=== PATIENT | male | born 1935 | race Caucasian/White ===

== ENCOUNTER 2022-07-09 19:55 | Inpatient (IN) | payer MEDICARE, OTHER ==
[~2022-07-09 19:55] MED LIST: Iopamidol-370 76% 500 ML 1 ML ONE
[2022-07-09] MEDS ORDERED: Aspirin 325 MG TAB ONE (20:47)
[2022-07-09 20:50] LABS: #Lymphocytes 1.3 thou/uL (1.20-3.40); #Monocytes 0.5 thou/uL (0.11-0.59); #Neutrophils 4.7 thou/uL (1.40-6.50); %Basophils 0.4 % (0.0-1.0); %Eosinophils 0.1 % (0.0-10.0); %Lymphocytes 20.1 % (21.0-51.0); %Monocytes 7.2 % (0.0-10.0); %Neutrophils 72.1 % (42.0-75.0); Mean Corpuscular HGB CONC 33.6 g/dL (32.0-36.0); Mean Corpuscular Hemoglobin 34.5 pg (27.0-31.0); Mean Platelet Volume 7.6 fL (7.4-10.4); Platelet Count 204 10x3/uL (130-400); RBC Distribution Width 12.3 % (11.5-14.5); Red Blood Cell (RBC) Count 2.89 mill/uL (4.70-6.10); White Blood Cell (WBC) Count 6.5 10x3/uL (4.8-10.8)
[2022-07-09 21:09] LABS: ALT (SGPT) 32 U/L (8-55); AST (SGOT) 38 U/L (5-34); Albumin 3.4 g/dL (3.4-4.8); Alkaline Phosphatase 109 U/L (40-110); Anion Gap 16 mmol/L (10-20); BUN (Urea Nitrogen) 22 mg/dL (8.4-25.7); Bilirubin, Total 0.7 mg/dL (0.2-1.2); Calc. Creatinine Clearance 0 mL/min (70-130); Calcium 8.9 mg/dL (7.8-10.44); Carbon Dioxide 26 mmol/L (23-31); Chloride 104 mmol/L (98-107); Estimated GFR 58; Globulin 4.3 g/dL (2.4-3.5); Glucose 117 mg/dL (83-110); Potassium 4.2 mmol/L (3.5-5.1); Protein, Total 7.7 g/dL (5.8-8.1); Sodium 142 mmol/L (136-145)
[2022-07-09 21:31] LABS: CKMB 3.2 ng/mL (0-6.6)
[2022-07-09] MEDS ORDERED: Furosemide 20 MG/2 ML VIAL SLOW IVP SCH (23:45)
[2022-07-09] MEDS ORDERED: Acetaminophen 325 MG TAB PO PRN (23:48)
[2022-07-09] MEDS ORDERED: Ondansetron PF 4 MG/2 ML Vial IVP PRN (23:48)
[2022-07-10] LABS: Troponin I 0.028 ng/mL (< 0.028)
[2022-07-10] MEDS ORDERED: Furosemide 20 MG/2 ML VIAL ONE ×3 (00:43→13:50)
[2022-07-10 02:59] LABS: Troponin I 0.027 ng/mL (< 0.028)
[2022-07-10] MEDS: Furosemide 20 MG/2 ML VIAL SLOW IVP SCH ×2 (05:59→14:02)
[2022-07-10 07:23] LABS: #Lymphocytes 1.7 thou/uL (1.20-3.40); #Monocytes 0.6 thou/uL (0.11-0.59); #Neutrophils 6.1 thou/uL (1.40-6.50); %Basophils 0.2 % (0.0-1.0); %Eosinophils 0.2 % (0.0-10.0); %Monocytes 6.6 % (0.0-10.0); Mean Corpuscular HGB CONC 33.2 g/dL (32.0-36.0); Mean Corpuscular Hemoglobin 34.1 pg (27.0-31.0); Mean Platelet Volume 7.7 fL (7.4-10.4); Platelet Count 214 10x3/uL (130-400); RBC Distribution Width 12.4 % (11.5-14.5); Red Blood Cell (RBC) Count 3.21 mill/uL (4.70-6.10); White Blood Cell (WBC) Count 8.3 10x3/uL (4.8-10.8)
[2022-07-10 07:41] LABS: Anion Gap 13 mmol/L (10-20); BUN (Urea Nitrogen) 20 mg/dL (8.4-25.7); Calc. Creatinine Clearance 0 mL/min (70-130); Calcium 9.1 mg/dL (7.8-10.44); Carbon Dioxide 27 mmol/L (23-31); Chloride 100 mmol/L (98-107); Estimated GFR 60; Glucose 86 mg/dL (83-110); Magnesium 2.1 mg/dL (1.6-2.6); Sodium 136 mmol/L (136-145)
[2022-07-10] MEDS ORDERED: Metoclopramide HCl 10 MG/2 ML VIAL IVP PRN (08:20)
[2022-07-10] MEDS ORDERED: Ipratropium/Albuterol 3 ML NEB NEB PRN (09:23)
[2022-07-10] MEDS ORDERED: guaiFENesin 200 MG TAB PO PRN (09:23)
[2022-07-10] MEDS ORDERED: Iopamidol 370 76% 100 ML VIAL ONE (10:34)
[2022-07-10 18:34] VITALS: BMI 20.8
[2022-07-11 05:47] LABS: #Lymphocytes 1.2 thou/uL (1.20-3.40); #Monocytes 0.6 thou/uL (0.11-0.59); #Neutrophils 5.1 thou/uL (1.40-6.50); %Basophils 0.3 % (0.0-1.0); %Eosinophils 0.2 % (0.0-10.0); %Lymphocytes 17.5 % (21.0-51.0); %Monocytes 8.1 % (0.0-10.0); %Neutrophils 73.9 % (42.0-75.0); Hemoglobin 10.2 g/dL (14.0-18.0); Mean Corpuscular HGB CONC 33.2 g/dL (32.0-36.0); Mean Corpuscular Hemoglobin 34.2 pg (27.0-31.0); Mean Platelet Volume 7.8 fL (7.4-10.4); Platelet Count 210 10x3/uL (130-400); RBC Distribution Width 12.1 % (11.5-14.5); Red Blood Cell (RBC) Count 2.97 mill/uL (4.70-6.10)
[2022-07-11 06:12] LABS: Anion Gap 12 mmol/L (10-20); BUN (Urea Nitrogen) 25 mg/dL (8.4-25.7); Calc. Creatinine Clearance 31 mL/min (70-130); Calcium 8.7 mg/dL (7.8-10.44); Carbon Dioxide 27 mmol/L (23-31); Chloride 101 mmol/L (98-107); Estimated GFR 51; Glucose 99 mg/dL (83-110); Potassium 4.1 mmol/L (3.5-5.1); Sodium 136 mmol/L (136-145)
[2022-07-11] MEDS: Furosemide 20 MG/2 ML VIAL SLOW IVP SCH ×2 (07:16→15:11)
[2022-07-11] MEDS ORDERED: Thyroid 30 MG TAB PO SCH (09:00)
[2022-07-11 12:55] VITALS: BP 118/64; TEMP 98.1
== END 2022-07-11 15:28 | disposition home or self-care (01) | DRG 291 ==
LOC: ERS 19:55 → ERHOLD 22:36 → OBSVTOIN 23:50 → 2SW 07-10 18:27
PROVIDERS: ADMIT Internal Medicine; ATTEND Nurse Practitioner Acute Care
DX: I50.23 Acute on chronic systolic (congestive) heart failure (principal); J18.9 Pneumonia, unspecified organism; I45.2 Bifascicular block; I48.92 Unspecified atrial flutter; R91.8 Other nonspecific abnormal finding of lung field; R77.8 Other specified abnormalities of plasma proteins; Z66 Do not resuscitate; E03.9 Hypothyroidism, unspecified; D64.9 Anemia, unspecified; Z96.643 Presence of artificial hip joint, bilateral; J84.10 Pulmonary fibrosis, unspecified; I08.1 Rheumatic disorders of both mitral and tricuspid valves; R09.02 Hypoxemia; Z79.890 Hormone replacement therapy; Z90.89 Acquired absence of other organs; Z90.49 Acquired absence of other specified parts of digestive tract; Z98.42 Cataract extraction status, left eye; Z98.41 Cataract extraction status, right eye; Z20.822 Contact with and (suspected) exposure to COVID-19
CPT/HCPCS: 36415; 71045; 71275; 74177; 80048; 80053; 82553; 83735; 83880; 84443; 84484; 85025; 85379; 87804; 93005; 93010; 93306; 94760; J1940; Q9967; U0003; U0005

== ENCOUNTER 2022-07-22 08:38 | Day surgery (SDC) | payer MEDICARE, OTHER ==
[2022-07-21 13:06] VITALS: BMI 20.6
[2022-07-22 08:41] LABS: #Basophils 0.1 thou/uL (0.0-0.2); #Lymphocytes 2.2 thou/uL (1.20-3.40); #Monocytes 0.6 thou/uL (0.11-0.59); #Neutrophils 4.4 thou/uL (1.40-6.50); %Basophils 0.9 % (0.0-1.0); %Eosinophils 0.1 % (0.0-10.0); %Lymphocytes 29.6 % (21.0-51.0); %Monocytes 8.3 % (0.0-10.0); Hemoglobin 10.5 g/dL (14.0-18.0); Mean Corpuscular HGB CONC 32.6 g/dL (32.0-36.0); Mean Platelet Volume 7.5 fL (7.4-10.4); Platelet Count 213 10x3/uL (130-400); RBC Distribution Width 12.9 % (11.5-14.5); White Blood Cell (WBC) Count 7.3 10x3/uL (4.8-10.8)
[2022-07-22 08:57] LABS: INR-International Normal Ratio 1.2; PTT 30.9 sec (22.9-36.1); Prothrombin Time 15.5 sec (12.0-14.7)
[2022-07-22 10:02] VITALS: BP 164/78; TEMP 97.7
== END 2022-07-22 12:30 | disposition home or self-care (01) ==
LOC: CT 08:38
PROVIDERS: ATTEND Internal Medicine Critical Care Medicine
PROC: 0BBF3ZX Excision of Right Lower Lung Lobe, Percutaneous Approach, Diagnostic (ICD-10-PCS; principal; 2022-07-22)
DX: C34.31 Malignant neoplasm of lower lobe, right bronchus or lung (principal); D64.9 Anemia, unspecified; I48.92 Unspecified atrial flutter; E03.9 Hypothyroidism, unspecified; Z79.890 Hormone replacement therapy
CPT/HCPCS: 32408; 71045; 77002; 85025; 85610; 85730; 88305; 88341; 88342; 88360

== ENCOUNTER 2022-08-13 11:00 | Outpatient (CLI) | payer MEDICARE, OTHER | END 2022-08-13 11:01 | disposition home or self-care (01) | LOC: PET 11:00 | PROVIDERS: ATTEND Internal Medicine Hematology & Oncology | DX: C43.39 Malignant melanoma of other parts of face (principal); C78.01 Secondary malignant neoplasm of right lung | CPT/HCPCS: 78816; A9552 ==

== ENCOUNTER 2022-10-15 11:00 | Outpatient (CLI) | payer MEDICARE, OTHER | END 2022-10-15 11:01 | disposition home or self-care (01) | LOC: PET 11:00 | PROVIDERS: ATTEND Internal Medicine Hematology & Oncology | DX: C43.39 Malignant melanoma of other parts of face (principal); C78.01 Secondary malignant neoplasm of right lung | CPT/HCPCS: 78816; A9552 ==

== ENCOUNTER 2022-10-19 09:59 | Outpatient (CLI) | payer MEDICARE, OTHER ==
[2022-10-19] MEDS ORDERED: Magnevist 469MG/ML 20 ML VIAL ONE (10:14)
== END 2022-10-19 10:00 | disposition home or self-care (01) ==
LOC: MRI 09:59
PROVIDERS: ATTEND Radiology Radiation Oncology
DX: C79.31 Secondary malignant neoplasm of brain (principal)
CPT/HCPCS: 70553; A9579

== ENCOUNTER 2022-11-11 12:01 | Inpatient (IN) | payer MEDICARE, OTHER ==
[2022-11-11 13:11] LABS: #Lymphocytes 1.2 thou/uL (1.20-3.40); #Monocytes 0.5 thou/uL (0.11-0.59); #Neutrophils 8.9 thou/uL (1.40-6.50); %Basophils 0.2 % (0.0-1.0); %Eosinophils 0.1 % (0.0-10.0); %Lymphocytes 10.9 % (21.0-51.0); %Monocytes 4.6 % (0.0-10.0); %Neutrophils 84.2 % (42.0-75.0); Hemoglobin 12.6 g/dL (14.0-18.0); Mean Corpuscular HGB CONC 33.9 g/dL (32.0-36.0); Mean Corpuscular Hemoglobin 34.6 pg (27.0-31.0); Platelet Count 144 10x3/uL (130-400); Red Blood Cell (RBC) Count 3.65 mill/uL (4.70-6.10); White Blood Cell (WBC) Count 10.6 10x3/uL (4.8-10.8)
[2022-11-11 13:32] LABS: ALT (SGPT) 23 U/L (8-55); AST (SGOT) 25 U/L (5-34); Albumin 3.9 g/dL (3.4-4.8); Alkaline Phosphatase 95 U/L (40-110); Anion Gap 13 mmol/L (10-20); BUN (Urea Nitrogen) 39 mg/dL (8.4-25.7); Bilirubin, Total 0.8 mg/dL (0.2-1.2); Calc. Creatinine Clearance 0 mL/min (70-130); Calcium 9.3 mg/dL (7.8-10.44); Carbon Dioxide 28 mmol/L (23-31); Chloride 104 mmol/L (98-107); Estimated GFR 49; Glucose 100 mg/dL (83-110); Magnesium 2.1 mg/dL (1.6-2.6); Potassium 4.6 mmol/L (3.5-5.1); Protein, Total 7.9 g/dL (5.8-8.1); Sodium 140 mmol/L (136-145)
[2022-11-11] MEDS ORDERED: Dexamethasone 10 MG/ML VIAL ONE (14:25)
[2022-11-11] MEDS ORDERED: Lorazepam 2 MG/ML VIAL SLOW IVP PRN (14:52)
[2022-11-11] MEDS ORDERED: Ondansetron ODT 4 MG TAB PO PRN (14:55)
[2022-11-11] MEDS ORDERED: Acetaminophen 325 MG TAB PO PRN (14:55)
[2022-11-11] MEDS ORDERED: Ondansetron PF 4 MG/2 ML Vial IVP PRN (14:55)
[2022-11-11] MEDS ORDERED: Senokot S 8.6-50 MG TAB PO PRN (14:55)
[2022-11-11] MEDS ORDERED: Calcium Carbonate 500 MG ChewTAB PO PRN (14:55)
[2022-11-11] MEDS ORDERED: Electrolyte Replacement Protocol 1 EACH FS SCH (15:00)
[2022-11-11] MEDS ORDERED: Sodium Chloride 0.9% 1,000 ML IV SCH ×2 (15:00→17:00)
[2022-11-11] MEDS ORDERED: levETIRAcetam 500 MG/5 ML VIAL ONE (15:18)
[2022-11-11] MEDS ORDERED: hydrALAZINE 25 MG TAB PO PRN (16:02)
[2022-11-11 17:03] LABS: #Lymphocytes 0.6 thou/uL (1.20-3.40); #Monocytes 0.1 thou/uL (0.11-0.59); #Neutrophils 8.8 thou/uL (1.40-6.50); %Eosinophils 0.2 % (0.0-10.0); %Lymphocytes 5.9 % (21.0-51.0); %Monocytes 0.7 % (0.0-10.0); %Neutrophils 93.2 % (42.0-75.0); Hemoglobin 12.2 g/dL (14.0-18.0); Mean Corpuscular HGB CONC 33.6 g/dL (32.0-36.0); Mean Corpuscular Hemoglobin 34.6 pg (27.0-31.0); Mean Platelet Volume 7.7 fL (7.4-10.4); Platelet Count 123 10x3/uL (130-400); Red Blood Cell (RBC) Count 3.54 mill/uL (4.70-6.10); White Blood Cell (WBC) Count 9.5 10x3/uL (4.8-10.8)
[2022-11-11 17:24] VITALS: BMI 23.4
[2022-11-11 17:24] LABS: ALT (SGPT) 53 U/L (8-55); AST (SGOT) 55 U/L (5-34); Albumin 3.7 g/dL (3.4-4.8); Alkaline Phosphatase 90 U/L (40-110); Anion Gap 14 mmol/L (10-20); BUN (Urea Nitrogen) 36 mg/dL (8.4-25.7); Bilirubin, Total 0.8 mg/dL (0.2-1.2); Calc. Creatinine Clearance 0 mL/min (70-130); Calcium 8.8 mg/dL (7.8-10.44); Carbon Dioxide 26 mmol/L (23-31); Chloride 103 mmol/L (98-107); Estimated GFR 58; Globulin 3.7 g/dL (2.4-3.5); Glucose 117 mg/dL (83-110); Magnesium 1.9 mg/dL (1.6-2.6); Protein, Total 7.4 g/dL (5.8-8.1); Sodium 138 mmol/L (136-145)
[2022-11-11] MEDS: Dexamethasone 4 mg/ml Vial SLOW IVP SCH (17:47)
[2022-11-11] MEDS ORDERED: Atropine Sulfate 1 mg/10 ml Syringe IVP PRN (18:36)
[2022-11-11] MEDS ORDERED: Magnesium 2 GM/50 ML(in water) 2 GM in Premix Bag 1 BAG IVPB SCH (21:00)
[2022-11-11] MEDS: Cyanocobalamin (Vitamin B-12) 1,000 MCG TAB PO SCH (21:02)
[2022-11-11] MEDS: Folic Acid 1 MG TAB PO SCH (21:02)
[2022-11-11] MEDS: Multivit, Therapeutic 1 TAB PO SCH (21:02)
[2022-11-11] MEDS: levETIRAcetam 500 MG/5 ML VIAL SLOW IVP SCH (21:02)
[2022-11-12] MEDS: Dexamethasone 4 mg/ml Vial SLOW IVP SCH ×4 (00:37→17:06)
[2022-11-12 05:48] LABS: Anion Gap 13 mmol/L (10-20); BUN (Urea Nitrogen) 39 mg/dL (8.4-25.7); Calc. Creatinine Clearance 36 mL/min (70-130); Calcium 8.5 mg/dL (7.8-10.44); Carbon Dioxide 23 mmol/L (23-31); Chloride 105 mmol/L (98-107); Estimated GFR 62; Glucose 157 mg/dL (83-110); Magnesium 2.6 mg/dL (1.6-2.6); Potassium 5.4 mmol/L (3.5-5.1); Sodium 136 mmol/L (136-145)
[2022-11-12] MEDS: levETIRAcetam 500 MG/5 ML VIAL SLOW IVP SCH ×2 (09:18→21:25)
[2022-11-12] MEDS ORDERED: DOPamine 400 MG/D5W 250 ML 250 ML IVPB SCH (10:30)
[2022-11-12] MEDS: Cyanocobalamin (Vitamin B-12) 1,000 MCG TAB PO SCH (21:25)
[2022-11-12] MEDS: Folic Acid 1 MG TAB PO SCH (21:25)
[2022-11-12] MEDS: Multivit, Therapeutic 1 TAB PO SCH (21:25)
[2022-11-13] MEDS: Dexamethasone 4 mg/ml Vial SLOW IVP SCH ×5 (00:16→23:30)
[2022-11-13] MEDS: levETIRAcetam 500 MG/5 ML VIAL SLOW IVP SCH ×2 (09:24→20:15)
[2022-11-13] MEDS ORDERED: Cephalexin 250 MG CAP PO SCH (18:00)
[2022-11-13] MEDS: Cyanocobalamin (Vitamin B-12) 1,000 MCG TAB PO SCH (20:15)
[2022-11-13] MEDS: Folic Acid 1 MG TAB PO SCH (20:15)
[2022-11-13] MEDS: Multivit, Therapeutic 1 TAB PO SCH (20:15)
[2022-11-14 05:06] LABS: #Basophils 0.1 thou/uL (0.0-0.2); #Lymphocytes 0.5 thou/uL (1.20-3.40); #Monocytes 0.4 thou/uL (0.11-0.59); %Basophils 0.4 % (0.0-1.0); %Lymphocytes 4.1 % (21.0-51.0); %Neutrophils 92.4 % (42.0-75.0); Hemoglobin 11.4 g/dL (14.0-18.0); Mean Corpuscular HGB CONC 32.9 g/dL (32.0-36.0); Mean Corpuscular Hemoglobin 34.1 pg (27.0-31.0); Mean Platelet Volume 8.5 fL (7.4-10.4); Platelet Count 106 10x3/uL (130-400); Red Blood Cell (RBC) Count 3.36 mill/uL (4.70-6.10); White Blood Cell (WBC) Count 11.9 10x3/uL (4.8-10.8)
[2022-11-14 05:23] LABS: Anion Gap 13 mmol/L (10-20); BUN (Urea Nitrogen) 47 mg/dL (8.4-25.7); Calc. Creatinine Clearance 36 mL/min (70-130); Calcium 8.7 mg/dL (7.8-10.44); Carbon Dioxide 20 mmol/L (23-31); Chloride 108 mmol/L (98-107); Estimated GFR 61; Glucose 122 mg/dL (83-110); Potassium 5.5 mmol/L (3.5-5.1); Sodium 135 mmol/L (136-145)
[2022-11-14] MEDS: Dexamethasone 4 mg/ml Vial SLOW IVP SCH ×4 (05:26→23:43)
[2022-11-14] MEDS: levETIRAcetam 500 MG/5 ML VIAL SLOW IVP SCH (08:33)
[2022-11-14] MEDS: Folic Acid 1 MG TAB PO SCH (20:15)
[2022-11-14] MEDS: Multivit, Therapeutic 1 TAB PO SCH (20:16)
[2022-11-14] MEDS: Cyanocobalamin (Vitamin B-12) 1,000 MCG TAB PO SCH (20:16)
[2022-11-14] MEDS: levETIRAcetam 500 MG TAB PO SCH (20:16)
[2022-11-15 05:23] LABS: #Lymphocytes 0.5 thou/uL (1.20-3.40); #Monocytes 0.4 thou/uL (0.11-0.59); #Neutrophils 9.3 thou/uL (1.40-6.50); %Eosinophils 0.1 % (0.0-10.0); %Monocytes 3.7 % (0.0-10.0); %Neutrophils 91.3 % (42.0-75.0); Hemoglobin 10.6 g/dL (14.0-18.0); Mean Corpuscular HGB CONC 32.9 g/dL (32.0-36.0); Mean Corpuscular Hemoglobin 33.7 pg (27.0-31.0); Mean Platelet Volume 8.9 fL (7.4-10.4); Platelet Count 105 10x3/uL (130-400); RBC Distribution Width 12.9 % (11.5-14.5); Red Blood Cell (RBC) Count 3.15 mill/uL (4.70-6.10); White Blood Cell (WBC) Count 10.2 10x3/uL (4.8-10.8)
[2022-11-15 05:35] LABS: Anion Gap 12 mmol/L (10-20); BUN (Urea Nitrogen) 56 mg/dL (8.4-25.7); Calc. Creatinine Clearance 37 mL/min (70-130); Calcium 8.4 mg/dL (7.8-10.44); Carbon Dioxide 23 mmol/L (23-31); Chloride 106 mmol/L (98-107); Estimated GFR 63; Glucose 146 mg/dL (83-110); Potassium 4.2 mmol/L (3.5-5.1); Sodium 137 mmol/L (136-145)
[2022-11-15] MEDS: Dexamethasone 4 mg/ml Vial SLOW IVP SCH ×3 (05:42→20:35)
[2022-11-15] MEDS: levETIRAcetam 500 MG TAB PO SCH ×2 (09:04→20:35)
[2022-11-15] MEDS ORDERED: Lactated Ringer's 1,000 ML IV SCH (11:15)
[2022-11-15] MEDS: Folic Acid 1 MG TAB PO SCH (20:35)
[2022-11-15] MEDS: Cyanocobalamin (Vitamin B-12) 1,000 MCG TAB PO SCH (20:35)
[2022-11-15] MEDS: Multivit, Therapeutic 1 TAB PO SCH (20:35)
[2022-11-16] MEDS: Dexamethasone 4 mg/ml Vial SLOW IVP SCH ×5 (02:34→21:30)
[2022-11-16 05:16] LABS: #Lymphocytes 0.4 thou/uL (1.20-3.40); #Monocytes 0.3 thou/uL (0.11-0.59); #Neutrophils 9.6 thou/uL (1.40-6.50); %Basophils 0.3 % (0.0-1.0); %Eosinophils 0.1 % (0.0-10.0); %Lymphocytes 4.3 % (21.0-51.0); %Monocytes 3.2 % (0.0-10.0); %Neutrophils 92.1 % (42.0-75.0); Hemoglobin 10.9 g/dL (14.0-18.0); Mean Corpuscular HGB CONC 32.2 g/dL (32.0-36.0); Platelet Count 102 10x3/uL (130-400); RBC Distribution Width 12.7 % (11.5-14.5); White Blood Cell (WBC) Count 10.4 10x3/uL (4.8-10.8)
[2022-11-16 05:27] LABS: Anion Gap 12 mmol/L (10-20); BUN (Urea Nitrogen) 52 mg/dL (8.4-25.7); Calc. Creatinine Clearance 34 mL/min (70-130); Calcium 8.4 mg/dL (7.8-10.44); Carbon Dioxide 26 mmol/L (23-31); Chloride 104 mmol/L (98-107); Estimated GFR 57; Glucose 135 mg/dL (83-110); Potassium 4.8 mmol/L (3.5-5.1); Sodium 137 mmol/L (136-145)
[2022-11-16] MEDS: levETIRAcetam 500 MG TAB PO SCH ×2 (09:04→21:29)
[2022-11-16] MEDS ORDERED: Iopamidol 370 76% 100 ML VIAL ONE (09:39)
[2022-11-16] MEDS ORDERED: Heparin 10,000 UNITS/ 10 ML VIAL ONE (09:48)
[2022-11-16] MEDS ORDERED: Lidocaine 1% (PF) 30 ML VIAL ONE (09:48)
[2022-11-16] MEDS ORDERED: Lidocaine 1% PF 5 ML VIAL ONE (12:22)
[2022-11-16] MEDS ORDERED: PROPOFOL 200 MG/20 ML VIAL ONE (12:22)
[2022-11-16] MEDS ORDERED: fentaNYL 50 mcg/mL 1 mL Vial ONE (12:40)
[2022-11-16] MEDS ORDERED: Acetaminophen/Codeine 30-300mg Tablet PO PRN ×2 (14:30)
[2022-11-16] MEDS: Folic Acid 1 MG TAB PO SCH (21:29)
[2022-11-16] MEDS: Multivit, Therapeutic 1 TAB PO SCH (21:29)
[2022-11-16] MEDS: Cyanocobalamin (Vitamin B-12) 1,000 MCG TAB PO SCH (21:30)
[2022-11-17] MEDS: Dexamethasone 4 mg/ml Vial SLOW IVP SCH ×2 (02:47→09:06)
[2022-11-17 05:21] LABS: #Monocytes 0.4 thou/uL (0.11-0.59); #Neutrophils 10.5 thou/uL (1.40-6.50); %Basophils 0.1 % (0.0-1.0); %Monocytes 3.5 % (0.0-10.0); %Neutrophils 91.3 % (42.0-75.0); Hemoglobin 10.9 g/dL (14.0-18.0); Mean Corpuscular HGB CONC 33.4 g/dL (32.0-36.0); Mean Corpuscular Volume 98.8 fl (78.0-98.0); Mean Platelet Volume 11.2 fL (7.4-10.4); Platelet Count 108 10x3/uL (130-400); White Blood Cell (WBC) Count 11.5 10x3/uL (4.8-10.8)
[2022-11-17 05:30] LABS: Anion Gap 9 mmol/L (10-20); BUN (Urea Nitrogen) 43 mg/dL (8.4-25.7); Calc. Creatinine Clearance 43 mL/min (70-130); Calcium 8.1 mg/dL (7.8-10.44); Carbon Dioxide 26 mmol/L (23-31); Chloride 107 mmol/L (98-107); Estimated GFR 77; Glucose 118 mg/dL (83-110); Potassium 4.7 mmol/L (3.5-5.1); Sodium 137 mmol/L (136-145)
[2022-11-17] MEDS: levETIRAcetam 500 MG TAB PO SCH (09:06)
[2022-11-17 11:49] VITALS: BP 130/69; TEMP 97.7
== END 2022-11-17 13:50 | disposition home or self-care (01) | DRG 981 ==
LOC: ERS 12:01 → NEURO 16:14 → CCU 11-12 08:57 → OBSVTOIN 11-12 09:50 → NEURO 11-12 20:20
PROVIDERS: ADMIT Internal Medicine; ATTEND Hospitalist
PROC: 0JH604Z Insertion of Pacemaker, Single Chamber into Chest Subcutaneous Tissue and Fascia, Open Approach (ICD-10-PCS; principal; 2022-11-16)
PROC: 02HK0JZ Insertion of Pacemaker Lead into Right Ventricle, Open Approach (ICD-10-PCS; 2022-11-16)
DX: G40.919 Epilepsy, unspecified, intractable, without status epilepticus (principal); G93.6 Cerebral edema; C79.31 Secondary malignant neoplasm of brain; I48.92 Unspecified atrial flutter; N17.9 Acute kidney failure, unspecified; Z66 Do not resuscitate; E03.9 Hypothyroidism, unspecified; R00.1 Bradycardia, unspecified; Z51.5 Encounter for palliative care; Z79.899 Other long term (current) drug therapy
CPT/HCPCS: 33274; 36415; 70450; 71045; 72125; 80048; 80053; 83735; 85025; 93005; 93010; 93306; 95816; 95819; 95957; 96365; 96375; 96376; C1760; C1769; C1894; G0378; J0461; J1100; J1644; J1953; J2001; J2704; J3010; J3475; J7050; J7120; Q9967

== ENCOUNTER 2022-11-26 13:39 | Inpatient (IN) | payer MEDICARE, OTHER ==
[2022-11-26 14:45] LABS: #Monocytes 0.3 thou/uL (0.11-0.59); #Neutrophils 16.7 thou/uL (1.40-6.50); %Basophils 0.2 % (0.0-1.0); %Lymphocytes 1.8 % (21.0-51.0); %Monocytes 1.6 % (0.0-10.0); %Neutrophils 94.7 % (42.0-75.0); Hemoglobin 12.7 g/dL (14.0-18.0); Mean Corpuscular HGB CONC 33.2 g/dL (32.0-36.0); Mean Corpuscular Hemoglobin 32.3 pg (27.0-31.0); Mean Corpuscular Volume 97.2 fl (78.0-98.0); Mean Platelet Volume 10.7 fL (7.4-10.4); Platelet Count 133 10x3/uL (130-400); RBC Distribution Width 14.5 % (11.5-14.5); Red Blood Cell (RBC) Count 3.93 mill/uL (4.70-6.10); White Blood Cell (WBC) Count 17.7 10x3/uL (4.8-10.8)
[2022-11-26 15:26] LABS: ALT (SGPT) 51 U/L (8-55); AST (SGOT) 26 U/L (5-34); Albumin 3.8 g/dL (3.4-4.8); Alkaline Phosphatase 121 U/L (40-110); Anion Gap 19 mmol/L (10-20); BUN (Urea Nitrogen) 53 mg/dL (8.4-25.7); Bilirubin, Total 0.6 mg/dL (0.2-1.2); Calc. Creatinine Clearance 0 mL/min (70-130); Calcium 8.7 mg/dL (7.8-10.44); Carbon Dioxide 23 mmol/L (23-31); Chloride 104 mmol/L (98-107); Estimated GFR 50; Globulin 3.3 g/dL (2.4-3.5); Glucose 174 mg/dL (83-110); Potassium 4.7 mmol/L (3.5-5.1); Protein, Total 7.1 g/dL (5.8-8.1); Sodium 141 mmol/L (136-145)
[2022-11-26 15:52] LABS: CKMB 6.5 ng/mL (0-6.6)
[2022-11-26] MEDS ORDERED: Furosemide 20 MG/2 ML VIAL ONE (16:54)
[2022-11-26] MEDS ORDERED: Aspirin Chewable 81 MG TAB ONE (16:54)
[2022-11-26 19:01] LABS: Troponin I 0.104 ng/mL (< 0.028)
[2022-11-26] MEDS ORDERED: Ondansetron ODT 4 MG TAB SL PRN (20:45)
[2022-11-26] MEDS ORDERED: Ondansetron PF 4 MG/2 ML Vial IVP PRN (20:45)
[2022-11-26] MEDS ORDERED: Acetaminophen 325 MG TAB PO PRN (20:45)
[2022-11-26 21:58] LABS: Troponin I 0.108 ng/mL (< 0.028)
[2022-11-26 22:11] VITALS: BMI 22.6
[2022-11-26] MEDS ORDERED: Dexamethasone 4 MG TAB ONE (22:13)
[2022-11-26] MEDS: Dexamethasone 4 MG TAB PO SCH (22:38)
[2022-11-26] MEDS: levETIRAcetam 500 MG TAB PO SCH (22:38)
[2022-11-27 01:12] LABS: Troponin I 0.118 ng/mL (< 0.028)
[2022-11-27] MEDS ORDERED: Furosemide 40 MG/4 ML VIAL ONE (04:20)
[2022-11-27 05:59] LABS: #Monocytes 0.3 thou/uL (0.11-0.59); #Neutrophils 13.5 thou/uL (1.40-6.50); %Basophils 0.1 % (0.0-1.0); %Lymphocytes 2.8 % (21.0-51.0); %Monocytes 2.2 % (0.0-10.0); %Neutrophils 93.2 % (42.0-75.0); Hemoglobin 11.5 g/dL (14.0-18.0); Mean Corpuscular Hemoglobin 31.7 pg (27.0-31.0); Mean Corpuscular Volume 98.9 fl (78.0-98.0); Mean Platelet Volume 10.2 fL (7.4-10.4); RBC Distribution Width 14.7 % (11.5-14.5); Red Blood Cell (RBC) Count 3.63 mill/uL (4.70-6.10); White Blood Cell (WBC) Count 14.5 10x3/uL (4.8-10.8)
[2022-11-27] MEDS ORDERED: Furosemide 40 MG/4 ML VIAL SLOW IVP SCH (06:00)
[2022-11-27 06:10] LABS: Platelet Count 105 10x3/uL (130-400)
[2022-11-27 06:45] LABS: Anion Gap 16 mmol/L (10-20); BUN (Urea Nitrogen) 45 mg/dL (8.4-25.7); Calc. Creatinine Clearance 35 mL/min (70-130); Calcium 8.4 mg/dL (7.8-10.44); Carbon Dioxide 28 mmol/L (23-31); Chloride 100 mmol/L (98-107); Estimated GFR 60; Glucose 113 mg/dL (83-110); Potassium 4.6 mmol/L (3.5-5.1); Sodium 139 mmol/L (136-145)
[2022-11-27] MEDS: Thyroid 30 MG TAB PO SCH (06:51)
[2022-11-27] MEDS ORDERED: Aspirin 325 MG TAB PO SCH (08:00)
[2022-11-27] MEDS ORDERED: Aspirin 325 MG TAB ONE (08:02)
[2022-11-27] MEDS: Dexamethasone 4 MG TAB PO SCH ×2 (08:09→20:15)
[2022-11-27] MEDS: levETIRAcetam 500 MG TAB PO SCH ×2 (08:10→20:15)
[2022-11-28 04:55] LABS: #Monocytes 0.4 thou/uL (0.11-0.59); #Neutrophils 14.2 thou/uL (1.40-6.50); %Basophils 0.1 % (0.0-1.0); %Lymphocytes 2.9 % (21.0-51.0); %Monocytes 2.4 % (0.0-10.0); %Neutrophils 93.1 % (42.0-75.0); Hemoglobin 11.7 g/dL (14.0-18.0); Mean Corpuscular Hemoglobin 32.3 pg (27.0-31.0); Mean Corpuscular Volume 98.1 fl (78.0-98.0); Mean Platelet Volume 10.9 fL (7.4-10.4); Platelet Count 123 10x3/uL (130-400); RBC Distribution Width 14.4 % (11.5-14.5); Red Blood Cell (RBC) Count 3.62 mill/uL (4.70-6.10); White Blood Cell (WBC) Count 15.3 10x3/uL (4.8-10.8)
[2022-11-28 05:18] LABS: Anion Gap 15 mmol/L (10-20); BUN (Urea Nitrogen) 48 mg/dL (8.4-25.7); Calc. Creatinine Clearance 38 mL/min (70-130); Calcium 8.5 mg/dL (7.8-10.44); Carbon Dioxide 28 mmol/L (23-31); Chloride 100 mmol/L (98-107); Estimated GFR 64; Glucose 168 mg/dL (83-110); Sodium 138 mmol/L (136-145)
[2022-11-28] MEDS: Thyroid 30 MG TAB PO SCH (05:36)
[2022-11-28] MEDS: levETIRAcetam 500 MG TAB PO SCH (08:19)
[2022-11-28] MEDS: Dexamethasone 4 MG TAB PO SCH (08:19)
[2022-11-28 17:16] VITALS: BP 121/75; TEMP 97.9
== END 2022-11-28 19:28 | disposition home health service (06) | DRG 292 ==
LOC: SUATTDRO 13:39 → ERS 13:39 → ERHOLD 20:24 → 2SW 11-27 15:26 → OBSVTOIN 11-27 15:50
PROVIDERS: ADMIT Family Medicine; ATTEND Family Medicine
DX: I50.33 Acute on chronic diastolic (congestive) heart failure (principal); C78.00 Secondary malignant neoplasm of unspecified lung; C79.31 Secondary malignant neoplasm of brain; N17.9 Acute kidney failure, unspecified; I24.8 Other forms of acute ischemic heart disease; I48.92 Unspecified atrial flutter; Z66 Do not resuscitate; C43.9 Malignant melanoma of skin, unspecified; D72.829 Elevated white blood cell count, unspecified; T38.0X5A Adverse effect of glucocorticoids and synthetic analogues, initial encounter; E03.9 Hypothyroidism, unspecified; Z96.643 Presence of artificial hip joint, bilateral; G40.909 Epilepsy, unspecified, not intractable, without status epilepticus; I73.9 Peripheral vascular disease, unspecified; I08.2 Rheumatic disorders of both aortic and tricuspid valves; Z95.0 Presence of cardiac pacemaker; Z90.89 Acquired absence of other organs; Z90.49 Acquired absence of other specified parts of digestive tract; Z79.899 Other long term (current) drug therapy; Z79.890 Hormone replacement therapy; Z79.52 Long term (current) use of systemic steroids
CPT/HCPCS: 36415; 71045; 77280; 77307; 77334; 77412; 80048; 80053; 82553; 83880; 84443; 84484; 85025; 93005; 96374; J1650; J1940; J8540

== ENCOUNTER 2022-12-23 19:32 | Emergency (ER) | payer MEDICARE, OTHER ==
[2022-12-23 19:55] LABS: #Basophils 0.1 thou/uL (0.0-0.2); #Monocytes 0.5 thou/uL (0.11-0.59); #Neutrophils 6.8 thou/uL (1.40-6.50); %Basophils 0.6 % (0.0-1.0); %Lymphocytes 15.3 % (21.0-51.0); %Monocytes 5.7 % (0.0-10.0); %Neutrophils 75.5 % (42.0-75.0); Mean Corpuscular HGB CONC 32.2 g/dL (32.0-36.0); Mean Corpuscular Hemoglobin 32.2 pg (27.0-31.0); Mean Platelet Volume 9.2 fL (7.4-10.4); Platelet Count 162 10x3/uL (130-400); Red Blood Cell (RBC) Count 3.38 mill/uL (4.70-6.10)
[2022-12-23 20:02] LABS: Hemoglobin 10.9 g/dL (14.0-18.0)
[2022-12-23 20:21] LABS: ALT (SGPT) 32 U/L (8-55); AST (SGOT) 25 U/L (5-34); Albumin 3.5 g/dL (3.4-4.8); Alkaline Phosphatase 104 U/L (40-110); Anion Gap 12 mmol/L (10-20); BUN (Urea Nitrogen) 36 mg/dL (8.4-25.7); Bilirubin, Total 0.9 mg/dL (0.2-1.2); Calc. Creatinine Clearance 0 mL/min (70-130); Calcium 9.1 mg/dL (7.8-10.44); Carbon Dioxide 33 mmol/L (23-31); Chloride 97 mmol/L (98-107); Estimated GFR 65; Globulin 3.4 g/dL (2.4-3.5); Glucose 92 mg/dL (83-110); Potassium 3.9 mmol/L (3.5-5.1); Protein, Total 6.9 g/dL (5.8-8.1); Sodium 138 mmol/L (136-145)
== END 2022-12-23 21:13 | disposition home or self-care (01) ==
LOC: ERS 19:32
DX: D64.9 Anemia, unspecified (principal); C43.9 Malignant melanoma of skin, unspecified; I50.9 Heart failure, unspecified
CPT/HCPCS: 36415; 80053; 82728; 83540; 83550; 85025; 86850; 86900; 86901; 99284